=== PATIENT | male | born 1965 | race African-American/Black ===

== ENCOUNTER 2025-05-31 10:49 | Emergency (ER) | payer MEDICAID ==
[~2025-05-31] VITALS: Ht 172.7 cm; Wt 91.0 kg
[~2025-05-31 10:49] MED LIST: CLON0.1T MT; METH4TAB95 MT
[2025-05-31 10:52] VITALS: TEMP 36.9; O2SAT 100
[2025-05-31] MEDS ORDERED: DEXAMETHASONE 1 MG/ML ORAL SYR PO ONE (11:30)
[2025-05-31] MEDS ORDERED: P20 MT (12:00)
[2025-05-31] MEDS ORDERED: EPIN0.3P3 IM (12:05)
[2025-05-31 13:25] VITALS: BP 132/79; PULSE 78; RESP 15; O2SAT 100
[2025-05-31] MEDS: DEXAMETHASONE 4MG TABLET PO NR (13:35)
== END 2025-05-31 13:36 | disposition home or self-care (01) ==
LOC: ER 10:49
DX: R22.0 Localized swelling, mass and lump, head (principal); I10 Essential (primary) hypertension; Z88.6 Allergy status to analgesic agent; F10.90 Alcohol use, unspecified, uncomplicated; Z79.899 Other long term (current) drug therapy; Y90.9 Presence of alcohol in blood, level not specified
CPT/HCPCS: 99283; J8540